=== PATIENT | female | born 1985 | race Two or more races ===

== ENCOUNTER 2024-10-21 10:10 | Emergency (ER) | payer BC, OTHER ==
[~2024-10-21] VITALS: Ht 154.9 cm; Wt 116.0 kg
--- NOTE | 2024-10-21 10:24 | ECG ---
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
--- NOTE | 2024-10-21 10:56 | ED.PDOC ---
History of Present Illness HPI Comments A 38 YEAR OLD FEMALE PRESENTS TO THE ED WITH COMPLAINT OF RIGHT SIDED CHEST WALL PAIN THAT STARTED 1.5 WEEKS AGO. PATIENT REPORTS PAIN IS INTERMITTENT AND IS NON RADIATING. PATIENT WAS RECENTLY DIAGNOSED WITH HLD, PRE DM AND PLACED ON MEDICATIONS BY PCP. NO OTHER PMHX REPORTED. 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 PATIENT DENIES FEVER, CHILLS, SHORTNESS OF BREATH, CHEST PAIN, ABDOMINAL PAIN, NAUSEA, VOMITING, HEADACHE, OR OTHER COMPLAINTS. NO OTHER SYMPTOMS OR MODIFYING FACTORS AT THIS TIME. PATIENT IS ALERT, ORIENTED X 4, AND HAS STEADY GAIT. Chief Complaint: Chest Pain Time Seen by MD: 10:45 Reviewed Notes: Nurses Notes, Medications, Allergies Allergies: Coded Allergies: NO KNOWN ALLERGIES (Unverified , 10/21/24) Home Meds Active Scripts Ibuprofen (Ibuprofen) 800 Mg Tab, 1 TAB PO TID, #30 TAB Prov:HAN UGARTE PRIYA 10/21/24 Information Source: Patient Mode of Arrival: Ambulatory Severity: Moderate Timing: Weeks (1.5) Duration: Since onset Medication Refill: For: Other (RIGHT SIDE CHEST PAIN ) Past Medical History PAST MEDICAL HISTORY: High Lipids Surgical History: Denies all surgeries EXCELSIOR PICKER History: No Pertinent EXCELSIOR PICKER History Family History Family History: Reviewed,noncontributory to illness Social History Smoker: Non-Smoker Alcohol: Denies ETOH Use Drugs: Denies Drug Use Lives In: Home Constitutional: denies: chills, diaphoresis, fatigue, fever, malaise, sweats, weakness, others EENTM: denies: blurred vision, double vision, ear bleeding, ear discharge, ear drainage, ear pain, ear ringing, eye pain, eye redness, hearing loss, mouth main n, mouth swelling, nasal discharge, nose bleeding, nose congestion, nose pain, photophobia, tearing, throat pain, throat swelling, voice changes, others Respiratory: denies: cough, hemoptysis, orthopnea, SOB at rest, shortness of breath, SOB with excertion, stridor, wheezing, others Cardiovascular: reports: chest pain; denies: dizzy spells, diaphoresis, Dyspnea on exertion, edema, irregular heart beat, left arm pain, lightheadedness, palpitations, PND, syncope, others Gastrointestinal: denies: abdomen distended, abdominal pain, blood streaked bowels, constipated, diarrhea, dysphagia, difficulty swallowing, hematemesis, melena, nausea, poor appetite, poor fluid intake, rectal bleeding, rectal pain, vomiting, others Genitourinary: denies: abnormal vagina bleeding, burning, dyspareunia, dysuria, flank pain, frequency, hematuria, incontinence, pain, , vagina discharge, urgency, others Neurological: denies: dizziness, fainting, headache, left sided numbness, left sided weakness, numbness, paresthesia, pre-existing deficit, right sided numbness, right sided weakness, seizure, speech problems, tingling, tremors, weakness, others Musculoskeletal: denies: back pain, gout, joint pain, joint swelling, muscle pain, muscle stiffness, neck pain, others Integumetry: denies: bruises, change in color, change in hair/nails, dryness, laceration, lesions, lumps, rash, wounds, others Allergic/Immunocompromised: denies: Difficulty Healing, Frequent Infections, Hives, Itching, others Hematologic/Lymphatic: denies: anemia, blood clots, easy bleeding, easy bruisin g, swollen glands, others Endocrine: denies: excessive hunger, excessive sweating, excessive thirst, excessive urination, flushing, intolerance to cold, intolerance to heat, unexplained weight gain, unexplained weight loss, others Psychiatric: denies: anxiety, bipolar disorder, depression, hopeless, panic disorder, schizophrenia, sleepless, suicidal, others All Other Systems: Reviewed and Negative Physical Exam General Appearance: No Apparent Distress, Obese HEENT: Normal ENT Inspection, Pharynx Normal, TMs Normal Neck: Full Range of Motion, Non-Tender, Normal, Normal Inspection Respiratory: Lungs Clear, No Accessory Muscle Use, No Respiratory Distress, Normal Breath Sounds, Other (TENDERNESS ON RIGHT UPPER CHEST WALL. 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 Was a procedure done?: No EKG EKG : Pulse Rate (adult): 103 [place]: Normal Block: None Hypertrophy: None ST: Normal Differential Dx Considerations may include: Costochondritis, Muscle strain, CT, ANXIETY X-Ray, Labs, Meds, VS Vital Signs Date Time Temp Pulse Resp B/P (MAP) Pulse Ox O2 Delivery O2 Flow Rate FiO2 10/21/24 13:28 98.5 94 18 147/92 (110) 97 98.5 10/21/24 13:28 94 10/21/24 12:23 103 10/21/24 10:17 103 10/21/24 10:11 97.9 109 20 147/71 97 97.9 Lab Test 10/21/24 12:09 10/21/24 10:52 Range/Units Troponin I High Sensitivity < 3 L < 3 L </=34 ng/L White Blood Count 10.2 4.4-10.8 10^3/uL Red Blood Count 4.81 4.0-5.20 10^6/uL Hemoglobin 14.1 12.2-16.2 g/dL Hematocrit 42.4 36.0-46.0 % Mean Corpuscular Volume 88.2 80.0-100.0 fL Mean Corpuscular Hemoglobin 29.3 28.0-32.0 pg Mean Corpuscular Hemoglobin Concent 33.2 32.0-36.0 g/dL Red Cell Distribution Width 13.7 11.8-14.3 % Platelet Count 202 140-450 10^3/uL Mean Platelet Volume 10.2 6.9-10.8 fL Neutrophils (%) (Auto) 65.7 37.0-80.0 % Lymphocytes (%) (Auto) 25.3 10.0-50.0 % Monocytes (%) (Auto) 5.6 0.0-12.0 % Eosinophils (%) (Auto) 2.7 0.0-7.0 % Basophils (%) (Auto) 0.7 0.0-2.0 % Neutrophils # (Auto) 6.7 1.6-8.6 10 ^3/uL Lymphocytes # (Auto) 2.6 0.4-5.4 10 ^3/uL Monocytes # (Auto) 0.6 0-1.3 10 ^3/uL Eosinophils # (Auto) 0.3 0-0.8 10 ^3/uL Basophils # (Auto) 0.1 0-0.2 10 ^3/uL Nucleated Red Blood Cells 0.0 % Sodium Level 137 136-145 mmol/L Potassium Level 4.0 3.5-5.1 mmol/L Chloride Level 104 98-107 mmol/L Carbon Dioxide Level 24 20-31 mmol/L Anion Gap 9 5-15 Blood Urea Nitrogen 11 9-23 mg/dL Creatinine 0.77 0.550-1.02 mg/dL Glomerular Filtration Rate Calc 101 >90 mL/min BUN/Creatinine Ratio 14.3 10.0-20.0 Serum Glucose 186 H 74-106 mg/dL Calcium Level 9.8 8.7-10.4 mg/dL B-Type Natriuretic Peptide 6.25 0-100 pg/mL Thyroid Stimulating Hormone (TSH) 1.93 0.55-4.78 uIU/mL PATIENT: SEAN MORELOSACCT: [id number]: [id number] : 1985 LOC: ER ROOM / BED: / AGE / SEX: 38 / F ADM STATUS: REG ER SERVICE 1050 ORDERING PHYSICIAN: HAN UGARTE PROCEDURE(s): CXRP - CHEST PORTABLE REASON: RIGHT SIDE CHEST PAIN ORDER NUMBER(s): [id number], ACCESSION NUMBER(s): [id number] EXAM: XY CHEST PORTABLE HISTORY: RIGHT SIDE CHEST PAIN COMPARISON: None TECHNIQUE: Portable AP view of the chest was performed. FINDINGS: There is mild central interstitial prominence. No consolidative infiltrates or pneumothorax. The heart is not enlarged. IMPRESSION: Mild central interstitial prominence may be due to reactive airways disease or mild CHF. The lungs are otherwise clear. ATED BY: SAM COURTNEY MD DICTATED DATE/TIME: 10/21/24 1111 SIGNED BY: SAM COURTNEY MD SIGNED DATE/TIME: 10/21/24 1111 CC: X-Ray, Labs, Meds, VS Comment EXTERNAL MEDICAL RECORDS REVIEWED: [NONE] INDEPENDENT HISTORIANS: [NONE] SOCIAL DETERMINANTS OF HEALTH: [NONE] LABS ORDERED: CBC, BMP, TROP I X2, BNP REVIEWED AND INTERPRETED RESULTS: NORMAL IMAGING ORDERED: CHEST X-RAY: NORMAL TREATMENTS ORDERED: NO PROCEDURES PERFORMED: NONE CRITICAL CARE TIME: NONE I HAVE DISCUSSED THE PATIENT WITH THE ATTENDING PHYSICIAN [PHYSICIAN'S NAME] AND HE AGREES WITH THE PATIENT'S PLAN OF CARE AND DISPOSITION. BASED ON HISTORY OF PRESENT ILLNESS, AND PHYSICAL EXAM, PATIENT WILL BE DISCHARGED HOME. DISCUSSED PLAN FOR DISCHARGE HOME WITH RX [MOTRIN 800MG]. MEDICATION WARNINGS GIVEN. SHARED DECISION MAKING: DISCUSSED WITH PATIENT THAT THEIR WORKUP WAS NORMAL. PATIENT INSTRUCTED TO FOLLOW UP WITH PRIMARY CARE PROVIDER IN 1-2 DAYS FOR RE- EVALUATION OF SYMPTOMS. PATIENT VERBALIZES UNDERSTANDING TO RETURN TO ED FOR NEW OR WORSENING SYMPTOMS OR IF FOLLOW UP WITH PCP CANNOT BE OBTAINED. PATIENT FEELS COMFORTABLE GOING HOME AT THIS TIME. ALL QUESTIONS ADDRESSED AT TIME OF DISCHARGE. A 38 year old female presented to the ED c/o right sided chest wall pain. Upon my physical examination, the patient was in no acute respiratory distress and has no cardiopulmonary pathology noted at this time. My differential diagnosis includes, non-cardiac chest pain, atypical chest pain, costochondritis, intercostal muscle streain, chest wall pain, CT, Anxiety reaction, angina . Labs were ordered for the patient and there were no acute findings. An EKG was done for the patient and it was within normal limits. A chest x ray was done for the patient and there was no acute findings. Based off of my clincal exam findings and the fact that the patient's labs and imaging are normal, the patient is safe to discharge home and I have advised them to follow-up with the PCP in 1 to 2 days for referral to a nuclear powerplant mechanic for a possible echocardiogram and Holter monitor and return to the ED for any new or worsening symptoms. Time of 1ST Reevaluation: 13:24 Reevaluation 1ST: Improved Patient Education/Counseling: Diagnosis, Treatment, Need For Follow Up Family Education/Counseling: Diagnosis, Treatment, Need For Follow Up Medical Screening: No EMC Exist At This Time SEPSIS Sepsis Screen Date sepsis recognized/suspect: Oct 21, 2024 Time Sepsis recognized/suspect: 1013 Recent Procedure: No On Antibiotic Therapy: No Respiratory Rate >20: No Heart Rate >90: Yes Temp<36 C (96.8 F) or >38.3 C: No SBP <90 or MAP <65 mmHG: No New Acute Mental Status Change: No Is the patient on CPAP, BIPAP,: No Physician Orders Electrocardigram (10/21/24 11:21) Electrocardigram (10/21/24 13:21) Chest Portable (10/21/24 10:50) Troponin-I Hs (10/21/24 13:50) Vital Signs Date Time Temp Pulse Resp B/P (MAP) Pulse Ox O2 Delivery O2 Flow Rate FiO2 10/21/24 13:28 98.5 94 18 147/92 (110) 97 98.5 10/21/24 13:28 94 10/21/24 12:23 103 10/21/24 10:17 103 10/21/24 10:11 97.9 109 20 147/71 97 97.9 Laboratory Tests Test 10/21/24 10:52 White Blood Count 10.2 10^3/uL (4.4-10.8) Departure 1 Departure Time of Disposition: 13:24 Impression: Primary Impression: Chest wall pain Additional Impression: Non-cardiac chest pain Disposition: HOME / SELF CARE / HOMELESS Condition: Stable Additional Instructions: F/U PCP IN 2 DAYS RECHECK. IF CONDITION BECOME WORSE, RETURN TO ED [facility]O. e-Prescriptions Ibuprofen (Ibuprofen) 800 Mg Tab 1 TAB PO TID, #30 TAB Prov: HAN UGARTE 10/21/24 Discharged With: Self Critical Care Note Critical Care Time?: No Stability Stability form required: No Heart Score Heart Score: Heart Score Response (Comments) Value History Slightly Suspicious 0 EKG Normal 0 Age <45 0 Risk Factors No known risk factors 0 Troponin Normal limit 0 Total 0 I personally scribed for HAN UGARTE ([email or web address]) on 10/21/24 at 10:56. Electronically submitted by Beata Mccrary ([facility]). I personally scribed for HAN UGARTE ([email or web address]) on 10/21/24 at 11:03. Electronically submitted by Beata Mccrary ([facility]). HAN UGARTE Oct 21, 2024 10:56
--- NOTE | 2024-10-21 11:14 | DVH ---
EXAM: XY CHEST PORTABLE HISTORY: RIGHT SIDE CHEST PAIN COMPARISON: None TECHNIQUE: Portable AP view of the chest was performed. FINDINGS: There is mild central interstitial prominence. No consolidative infiltrates or pneumothorax. The hea rt is not enlarged. IMPRESSION: Mild central interstitial prominence may be due to reactive airways disease or mild CHF. The lungs a re otherwise clear.
[2024-10-21 11:15] LABS: Hematocrit 42.4 % (36.0-46.0); Hemoglobin 14.1 g/dL (12.2-16.2); Mean Corpuscular Hemoglobin 29.3 pg (28.0-32.0); Mean Corpuscular Volume 88.2 fL (80.0-100.0); Nucleated Red Blood Cells % 0.0 %
[2024-10-21 11:19] LABS: Chloride 104 mmol/L (98-107); Potassium 4.0 mmol/L (3.5-5.1); Sodium 137 mmol/L (136-145)
[2024-10-21 11:20] LABS: Anion Gap 9 (5-15); Calcium 9.8 mg/dL (8.7-10.4); Carbon Dioxide 24 mmol/L (20-31)
[2024-10-21 11:25] LABS: BUN/Creatinine Ratio 14.3 (10.0-20.0); Blood Urea Nitrogen 11 mg/dL (9-23)
[2024-10-21 11:29] LABS: Glucose 186 mg/dL (74-106)
[2024-10-21] MEDS ORDERED: IBUP-1456 PO (13:26)
[2024-10-21 13:28] VITALS: BP 147/92; PULSE 94; RESP 18; TEMP 98.5; O2SAT 97
== END 2024-10-21 13:32 | disposition home or self-care (01) ==
LOC: ER 10:10
DX: R07.89 Other chest pain (principal); E78.5 Hyperlipidemia, unspecified; Z79.1 Long term (current) use of non-steroidal anti-inflammatories (NSAID)
CPT/HCPCS: 36415; 71045; 80048; 83880; 84443; 84484; 85025; 93005